=== PATIENT | male | born 1935 | race Caucasian/White ===

== ENCOUNTER 2020-10-01 10:44 | Inpatient (IN) | payer OTHER ==
[2020-10-01 11:01] VITALS: BMI 25.8
[2020-10-01] MEDS ORDERED: METOPROLOL TARTRATE 5 MG/5 ML VIAL IVPUSH ONE (11:18)
[2020-10-01 11:21] LABS: BASO % 0.4 % (0-2.0); EOS % 0.3 % (0-4.5); HEMATOCRIT 47.5 % (35.4-49); HEMOGLOBIN 15.8 GM/dL (11.7-16.9); LYMPH % 25.4 % (8-40); MCH 31.4 pg (25.7-33.7); MCHC 33.3 g/dl (32.0-35.9); MEAN CELL VOLUME 94.3 fl (80-96); MONO % 9.1 % (3.8-10.2); NEUT % 64.8 % (42.8-82.8); PLATELET COUNT 218 K/MM3 (134-434); RBC 5.04 M/mm3 (4.00-5.60); RDW 13.8 % (11.9-15.9); WHITE BLOOD COUNT 8.3 K/mm3 (4.0-10.0)
[2020-10-01] MEDS ORDERED: METOPROLOL TARTRATE 5 MG/5 ML VIAL ONE (11:23)
[2020-10-01 11:24] LABS: INR 1.03 (0.83-1.09); PROTHROMBIN TIME (PATIENT) 12.6 SEC (9.7-13.0)
[2020-10-01 11:41] LABS: POTASSIUM 4.7 mmol/L (3.5-5.1)
[2020-10-01] MEDS ORDERED: dilTIAZem HCL 50 MG/10 ML - 10 ML VIAL IVPUSH ONE ×2 (11:42→13:01)
[2020-10-01 11:43] LABS: ALBUMIN 4.2 g/dl (3.4-5.0); CALCIUM 9.5 mg/dL (8.5-10.1)
[2020-10-01] MEDS ORDERED: dilTIAZem HCL 125 MG/25 ML - 25 ML VIAL ONE (11:44)
[2020-10-01 11:47] LABS: CREATININE 1.3 mg/dL (0.55-1.3)
[2020-10-01 11:48] LABS: BILIRUBIN,TOTAL 0.8 mg/dL (0.2-1); TOT PROT 8.1 g/dl (6.4-8.2)
[2020-10-01] MEDS ORDERED: dilTIAZem HCL 60 MG TABLET PO ONE (13:01)
[2020-10-01] MEDS ORDERED: dilTIAZem HCL 60 MG TABLET ONE (13:04)
[2020-10-01] MEDS ORDERED: ENOXAPARIN NA (PORCINE) 80 MG/0.8 ML DISP.SYRIN SQ ONE ×2 (13:35→13:38)
[2020-10-01 14:04] LABS: PH,URINE 6.5 (5.0-8.0); URINE APPEARANCE CLEAR; URINE BILIRUBIN NEGATIVE (NEGATIVE); URINE COLOR YELLOW; URINE GLUCOSE (UA) NEGATIVE (NEGATIVE); URINE KETONE 1+ (NEGATIVE); URINE LEUK ESTERASE NEGATIVE (NEGATIVE); URINE NITRITE NEGATIVE (NEGATIVE); URINE PROTEIN NEGATIVE (NEGATIVE); URINE UROBILINOGEN 0.2 mg/dL (0.2-1.0)
[2020-10-01] MEDS: APIXABAN 5 MG TABLET PO SCH (22:15)
[2020-10-02] MEDS: METOPROLOL TARTRATE 5 MG/5 ML VIAL IVPB PRN ×2 (04:35→06:12)
[2020-10-02 07:10] LABS: BASO % 0.7 % (0-2.0); EOS % 1.1 % (0-4.5); HEMATOCRIT 44.8 % (35.4-49); HEMOGLOBIN 14.7 GM/dL (11.7-16.9); LYMPH % 35.7 % (8-40); MCHC 32.8 g/dl (32.0-35.9); MEAN CELL VOLUME 94.6 fl (80-96); MEAN PLT VOLUME 11.5 fl (7.5-11.1); MONO % 10.2 % (3.8-10.2); NEUT % 52.3 % (42.8-82.8); PLATELET COUNT 191 K/MM3 (134-434); RBC 4.74 M/mm3 (4.00-5.60); RDW 13.9 % (11.9-15.9); WHITE BLOOD COUNT 7.6 K/mm3 (4.0-10.0)
[2020-10-02 07:31] LABS: POTASSIUM 4.6 mmol/L (3.5-5.1)
[2020-10-02 07:38] LABS: ALBUMIN 3.6 g/dl (3.4-5.0); BLOOD UREA NITROGEN 20.5 mg/dL (7-18)
[2020-10-02 07:39] LABS: CALCIUM 8.9 mg/dL (8.5-10.1)
[2020-10-02 07:40] LABS: MAGNESIUM 2.2 mg/dL (1.8-2.4)
[2020-10-02 07:41] LABS: BILIRUBIN,TOTAL 0.6 mg/dL (0.2-1)
[2020-10-02 07:42] LABS: TOT PROT 6.7 g/dl (6.4-8.2)
[2020-10-02 07:44] LABS: CREATININE 1.1 mg/dL (0.55-1.3)
[2020-10-02] MEDS ORDERED: TAMSULOSIN HCL 0.4 MG CAP PO SCH (08:30)
[2020-10-02] MEDS: APIXABAN 5 MG TABLET PO SCH ×2 (09:22→22:48)
[2020-10-02] MEDS ORDERED: CLOPIDOGREL BISULFATE 75 MG TABLET (FP) PO SCH (10:00)
[2020-10-02] MEDS: dilTIAZem HCL 30 MG TABLET PO SCH ×2 (11:29→17:05)
[2020-10-02] MEDS ORDERED: METOPROLOL TARTRATE 50 MG TABLET (FP) PO SCH (18:00)
[2020-10-02] MEDS ORDERED: METOPROLOL TARTRATE 25 MG TABLET (FP) PO SCH (18:00)
[2020-10-02] MEDS ORDERED: ATORVASTATIN CA 80 MG TABLET (FP) PO SCH (22:00)
[2020-10-03 01:30] VITALS: BP 103/73; PULSE 135; TEMP 98.2
== END 2020-10-02 23:00 | disposition short-term general hospital (02) | DRG 310 ==
LOC: JER 10:44 → JERBED 13:02 → J4W 16:04
PROVIDERS: ADMIT Family Medicine; ATTEND Family Medicine
DX: I48.92 Unspecified atrial flutter (principal); I25.10 Atherosclerotic heart disease of native coronary artery without angina pectoris; Z95.5 Presence of coronary angioplasty implant and graft; M54.2 Cervicalgia; R42 Dizziness and giddiness; E11.9 Type 2 diabetes mellitus without complications; E78.5 Hyperlipidemia, unspecified; I25.2 Old myocardial infarction; R00.0 Tachycardia, unspecified; R00.2 Palpitations
CPT/HCPCS: 36415; 71046-TC-FY; 80053; 80061; 81003; 82550; 83721; 83735; 84443; 84484; 85025; 85610; 87086; 93005; 93010; 99285-25; C9803; U0003

== ENCOUNTER 2022-07-02 09:43 | Emergency (ER) | payer OTHER ==
[2022-07-02 10:11] VITALS: BP 151/79; PULSE 90; RESP 18; TEMP 97.8; BMI 23.1
[2022-07-02 10:52] LABS: HEMATOCRIT 41.5 % (35.4-49); HEMOGLOBIN 13.8 GM/dL (11.7-16.9); MCH 31.3 pg (25.7-33.7); MCHC 33.3 g/dl (32.0-35.9); MEAN CELL VOLUME 93.9 fl (80-96); MEAN PLT VOLUME 10.6 fl (7.5-11.1); PLATELET COUNT 149 10^3/uL (134-434); RBC 4.42 M/mm3 (4.00-5.60); RDW 13.4 % (11.9-15.9); WHITE BLOOD COUNT 6.7 K/mm3 (4.0-10.0)
[2022-07-02 10:53] LABS: BASO % 0.4 % (0-2.0); EOS % 0.2 % (0-4.5); LYMPH % 20.9 % (8-40); MONO % 7.3 % (3.8-10.2); NEUT % 71.2 % (42.8-82.8)
[2022-07-02 11:19] LABS: CALCIUM 9.1 mg/dL (8.5-10.1)
[2022-07-02 11:21] LABS: ALBUMIN 3.9 g/dl (3.4-5.0); BLOOD UREA NITROGEN 12.3 mg/dL (7-18)
[2022-07-02 11:24] LABS: CREATININE 0.9 mg/dL (0.55-1.3)
[2022-07-02 11:26] LABS: BILIRUBIN,TOTAL 0.9 mg/dL (0.2-1); TOT PROT 7.2 g/dl (6.4-8.2)
== END 2022-07-02 14:26 | disposition home or self-care (01) ==
LOC: JER 09:43
DX: U07.1 COVID-19 (principal)
CPT/HCPCS: 36415; 71046-TC-FY; 80053; 84484; 85025; 93005; 93010; 99284-25